=== PATIENT | male | born 1990 | race Caucasian/White ===

== ENCOUNTER → 2024-11-14 | Outpatient (CLI) | payer OTHER | LOC: M RAD 08:22 | PROVIDERS: ATTEND Physician Assistant | DX: R05.3 Chronic cough (principal) ==

== ENCOUNTER → 2024-11-21 | Outpatient (CLI) | payer OTHER | LOC: M CARPUL 10:58 → EDUNIT# 11:00 | PROVIDERS: ATTEND Physician Assistant | DX: R05.3 Chronic cough (principal) ==

== ENCOUNTER → 2024-12-11 | Outpatient (CLI) | payer OTHER ==
[~2024-12-11] MED LIST: METHACHOLINE KIT (6 VIAL.NEB PREMIX) INH ONE
== END ==
LOC: M CARPUL 07:28
PROVIDERS: ATTEND Physician Assistant
DX: R05.3 Chronic cough (principal)
CPT/HCPCS: 94070; J7674